=== PATIENT | female | born 1955 | race Caucasian/White ===

== ENCOUNTER 2017-06-16 11:58 | Emergency (ER) | payer MEDICAID | END 2017-06-16 13:06 | disposition home or self-care (01) | LOC: D.ER 11:58 | DX: H05.012 Cellulitis of left orbit (principal); F17.200 Nicotine dependence, unspecified, uncomplicated ==

== ENCOUNTER 2019-05-22 09:50 | Emergency (ER) | payer MEDICAID ==
[~2019-05-22] VITALS: Ht 162.6 cm; Wt 50.0 kg
[2019-05-22 09:57] VITALS: Ht 162.6 cm; Wt 50.0 kg
[2019-05-22] MEDS ORDERED: LISINOPRIL20 MG PO (09:59)
[2019-05-22] MEDS ORDERED: NORVASC5 MG PO (09:59)
== END 2019-05-22 11:44 | disposition home or self-care (01) ==
LOC: D.ER 09:50
DX: M25.562 Pain in left knee (principal); M79.672 Pain in left foot; V09.9XXA Pedestrian injured in unspecified transport accident, initial encounter; Y93.9 Activity, unspecified; Y92.9 Unspecified place or not applicable; I10 Essential (primary) hypertension; E78.5 Hyperlipidemia, unspecified; E11.9 Type 2 diabetes mellitus without complications; Z72.0 Tobacco use